=== PATIENT | male | born 1975 | race Hispanic/Latino ===

== ENCOUNTER 2017-04-02 15:29 | Emergency (ER) | payer SELFPAY ==
[~2017-04-02] VITALS: Ht 170.2 cm; Wt 90.8 kg
[2017-04-02 16:10] LABS: IMMATURE GRANULOCYTES 0.4 % (0.0-1.0); MEAN CORPUSCULAR HGB CONC 27.5 g/L CALC (32.0-36.0); NEUT# 4.38 thou/uL (1.82-7.42); RED BLOOD COUNT 3.05 mill/uL (4.70-6.10); RED CELL DISTRI WIDTH 18.5 % (11.5-15.5)
[2017-04-02 16:13] LABS: HEMATOCRIT 18.9 % (39.0-50.0); HEMOGLOBIN 5.2 g/dl (14.0-18.0)
[2017-04-02 16:31] LABS: ALBUMIN 4.8 g/dL (3.2-5.0); ALKALINE PHOSPHATASE 78 u/l (38-126); ANION GAP 19 (6-22 (CALC)); BILIRUBIN, TOTAL 0.7 mg/dL (0.0-1.4); BUN 10 mg/dL (9-20); BUN/CREATININE RATIO 12 (12-20 (CALC)); CARBON DIOXIDE 22 mmol/l (22-30); CHLORIDE 107 mmol/l (95-108); CREATININE 0.9 mg/dL (0.7-1.3); GFR > 60 ML/MIN (>=60 (CALC)); GFR FOR AFR.AMER. > 60 ML/MIN (>=60 (CALC)); POTASSIUM 3.9 mmol/l (3.5-5.1); SGOT/AST 22 u/l (17-59); SGPT/ALT 54 u/l (21-72); SODIUM 144 mmol/l (137-146)
[2017-04-02 16:39] LABS: PROTHROMBIN TIME 11.1 SECONDS (9.0-12.5)
[2017-04-02 16:43] LABS: MYOGLOBIN 21 ng/mL (0 - 121)
[2017-04-02 17:32] LABS: URINE BILIRUBIN - DIPSTICK NEGATIVE (NEGATIVE); URINE BLOOD DIPSTICK NEGATIVE (NEGATIVE); URINE COLOR YELLOW; URINE GLUCOSE - DIPSTICK NEGATIVE (NEGATIVE); URINE KETONE NEGATIVE (NEGATIVE); URINE LEUK ESTERASE NEGATIVE (NEGATIVE); URINE NITRITE - DIPSTICK NEGATIVE (Negative); URINE PROTEIN - DIPSTICK NEGATIVE (NEG-TRACE); URINE UROBILINOGEN - DIPSTICK 0.2 E.U./dL (0.2)
[2017-04-02 17:35] LABS: URINE CLARITY CLEAR
[2017-04-02 17:41] LABS: INFLUENZA A POSITIVE (NONE DETECT); INFLUENZA B NONE DETECTED (NONE DETECT)
[2017-04-02 19:20] VITALS: BP 138/78
== END 2017-04-02 19:20 | disposition short-term general hospital (02) | DRG 812 ==
LOC: ED 15:29
PROVIDERS: Emergency Medicine
DX: D64.9 Anemia, unspecified (principal); J11.1 Influenza due to unidentified influenza virus with other respiratory manifestations; R19.5 Other fecal abnormalities; R91.8 Other nonspecific abnormal finding of lung field

== ENCOUNTER 2019-11-20 09:19 | Emergency (ER) | payer SELFPAY ==
[~2019-11-20] VITALS: Ht 172.7 cm; Wt 88.3 kg
[2019-11-20] MEDS ORDERED: FLEXERIL5 M1 PO (10:56)
[2019-11-20] MEDS ORDERED: IBUPROFEN600 MG PO (10:56)
[2019-11-20 11:06] VITALS: BP 155/85
== END 2019-11-20 11:27 | disposition home or self-care (01) | DRG 563 ==
LOC: ED 09:19
DX: S39.012A Strain of muscle, fascia and tendon of lower back, initial encounter (principal); M51.27 Other intervertebral disc displacement, lumbosacral region; I10 Essential (primary) hypertension; E78.00 Pure hypercholesterolemia, unspecified; X50.0XXA Overexertion from strenuous movement or load, initial encounter; Y93.89 Activity, other specified; Y92.009 Unspecified place in unspecified non-institutional (private) residence as the place of occurrence of the external cause

== ENCOUNTER 2021-08-13 21:54 | Emergency (ER) | payer SELFPAY ==
[~2021-08-13] VITALS: Ht 172.7 cm; Wt 94.5 kg
[~2021-08-13 21:54] MED LIST: FLEXERIL5 M1 PO; IBUPROFEN600 MG PO
[2021-08-13 22:48] LABS: IMMATURE GRANULOCYTES 0.2 % (0.0-5.0); MEAN CORPUSCULAR HGB 28.4 pG CALC (26.0-32.0); MEAN CORPUSCULAR HGB CONC 33.8 g/dL CAL (32.0-36.0); NEUT# 3.97 thou/uL (1.82-7.42); RED BLOOD COUNT 4.33 mill/uL (4.70-6.10); RED CELL DISTRI WIDTH 12.9 % (11.5-15.5)
[2021-08-13 22:49] LABS: HEMATOCRIT 36.4 % (39.0-50.0); HEMOGLOBIN 12.3 g/dl (14.0-18.0); MEAN CELL VOLUME 84.1 fL CALC (80.0-100.0)
[2021-08-13 23:05] LABS: ALBUMIN 3.9 g/dL (3.2-5.0); ALKALINE PHOSPHATASE 90 u/l (38-126); ANION GAP 12 (6-22 (CALC)); BUN 16 mg/dL (9-20); BUN/CREATININE RATIO 20 (12-20 (CALC)); CARBON DIOXIDE 23 mmol/l (22-30); CHLORIDE 105 mmol/l (95-108); CREATININE 0.8 mg/dL (0.7-1.3); GFR FOR AFR.AMER. > 60 ML/MIN (>=60 (CALC)); GFR OTHER RACES > 60 ML/MIN (>=60 (CALC)); POTASSIUM 3.2 mmol/l (3.5-5.1); SGOT/AST 19 u/l (17-59); SODIUM 137 mmol/l (137-146); TOTAL PROTEIN 7.3 g/dL (6.3-8.2)
[2021-08-13 23:14] LABS: BILIRUBIN, TOTAL 0.1 mg/dL (0.0-1.4)
[2021-08-13 23:17] LABS: MYOGLOBIN 41 ng/mL (0 - 121)
[2021-08-13 23:30] LABS: URINE BILIRUBIN - DIPSTICK NEGATIVE (NEGATIVE); URINE BLOOD DIPSTICK TRACE-INTACT (NEGATIVE); URINE COLOR YELLOW; URINE GLUCOSE - DIPSTICK NEGATIVE (NEGATIVE); URINE KETONE NEGATIVE (NEGATIVE); URINE LEUK ESTERASE NEGATIVE (NEGATIVE); URINE PROTEIN - DIPSTICK NEGATIVE (NEG-TRACE); URINE SPECIFIC GRAVITY <=1.005; URINE UROBILINOGEN - DIPSTICK 0.2 E.U./dL (0.2)
[2021-08-13 23:34] LABS: URINE NITRITE - DIPSTICK NEGATIVE (Negative)
[2021-08-14] MEDS ORDERED: LOSARTAN POTAS100 MG PO (00:05)
[2021-08-14 00:30] VITALS: BP 135/85
== END 2021-08-14 00:33 | disposition home or self-care (01) | DRG 305 ==
LOC: ED 21:54
PROVIDERS: Family Medicine
DX: I10 Essential (primary) hypertension (principal); E78.00 Pure hypercholesterolemia, unspecified